=== PATIENT | female | born 2000 | race Asian ===

== ENCOUNTER 2021-12-12 15:17 | Observation (INO) | payer OTHER, SELFPAY ==
[2021-12-12] VITALS (10 sets, daily range): BP systolic 93–115; BP diastolic 51–74; PULSE 71–99; RESP 14–21; TEMP 36.4–36.6; O2SAT 94–100; BMI 21.6; BMI 23.6
--- NOTE | 2021-12-12 16:40 | ED_ITS ---
HPI - Chest Pain General Time Seen by Provider: 16:41 Date Seen: 12/12/21 Chief Complaint: Chest Pain Stated Complaint: Chest Pain Time Seen by Provider: 12/12/21 16:40 Source: patient, RN notes reviewed and old records reviewed Mode of arrival: ambulatory Limitations: no limitations History of Present Illness HPI narrative: Patient is a very pleasant 21-year-old female currently student at [employer] who comes to the emergency room with chest pain. Patient noted to have a pinching sensation in her chest lasting 1-2 minutes a few times a day since FridayDecember 10. Patient denies any shortness of breath or nausea when this happens. She has had no nausea, vomiting, coughing, fever. Patient also describes episodes of dizziness that have been going on for many many months. She was in [place] over the summer and got dizzy passed out and hit her head. She was seen in the local emergency room at which time her EKG showed a ?abnormality? and there was a possibility of a hole in her heart. She did not follow-up as instructed because she stated that she return to school and she was too busy. Patient denies history of DVT in herself or immediate family members. She denies lower extremity edema, calf tenderness. Upon further discussion patient also notes that she has passed out at least 3 times and 1 of those times she was out for approximately 5 minutes. She states that she knows this because she had just sent a text and when she woke up on the floor it was 5 minutes later. Related Data Home Medications Medication Instructions Recorded Confirmed escitalopram oxalate 10 mg tablet mg 12/12/21 Allergies Allergy/AdvReac Type Severity Reaction Status Date / Time No Known Drug Allergies Allergy Verified 12/12/21 15:42 Review of Systems Status of ROS Reports: 10 or more systems reviewed and unremarkable except as noted in History and below Const Denies: fever, chills or fatigue Eyes Denies: change in vision ENMT Denies: throat pain, neck pain or difficulty swallowing Cardio Reports: chest pain and lightheadedness; Denies: palpitations, edema, swelling of feet/ankles or shortness of breath with exertion Resp Denies: shortness of breath, cough or wheezing GI Denies: abdominal pain, nausea, vomiting, diarrhea or difficulty swallowing Denies: painful urination or urinary frequency Musculo Denies: back pain or neck pain Neuro Denies: headache Endo Denies: fatigue Allergy/Immuno Denies: wheezing PFSH PFSH Social History Smoking Status: Never smoker Do you use any of these nicotine containing products: None Second hand tobacco smoke exposure: No How often do you have a drink containing alcohol: never How often do you have six or more drinks on one occasion: Never AUDIT-C Alcohol total score: 0 Non-prescribed substance use: denies use service: No Exam Narrative Exam Narrative: Patient is alert and oriented. No acute distress. Face symmetrical. Heart with regular rate and rhythm. No murmur or rub. Lungs are clear bilaterally. Abdomen soft. Lower extremities without edema or calf tenderness. Const Vital Signs, click to edit/add: Vital Signs - 24 hr 12/12/21 15:38 12/12/21 19:30 12/12/21 19:00 Temperature 97.9 F Pulse Rate [Pulse Oximeter] 99 77 89 Pulse Rate [orthostatic lying Apical] Pulse Rate [orthostatic sitting Right Apical] Pulse Rate [orthostatic standing Right Apical] Respiratory Rate 14 20 18 Blood Pressure [Right Upper Arm] 115/74 107/63 Blood Pressure [orthostatic lying Right Arm] Blood Pressure [orthostatic sitting Right Arm] Blood Pressure [orthostatic standing Right Arm] Pulse Oximetry 96 94 100 Oxygen Delivery Method Room Air Room Air Room Air 12/12/21 18:38 12/12/21 18:00 12/12/21 17:30 Temperature Pulse Rate [Pulse Oximeter] 77 71 86 Pulse Rate [orthostatic lying Apical] Pulse Rate [orthostatic sitting Right Apical] Pulse Rate [orthostatic standing Right Apical] Respiratory Rate 18 18 Blood Pressure [Right Upper Arm] 104/68 98/62 94/51 L Blood Pressure [orthostatic lying Right Arm] Blood Pressure [orthostatic sitting Right Arm] Blood Pressure [orthostatic standing Right Arm] Pulse Oximetry 98 99 Oxygen Delivery Method Room Air Room Air Room Air 12/12/21 17:11 12/12/21 17:46 Temperature Pulse Rate [Pulse Oximeter] 78 Pulse Rate [orthostatic lying Apical] 73 Pulse Rate [orthostatic sitting Right Apical] 85 Pulse Rate [orthostatic standing Right Apical] 97 Respiratory Rate 21 Blood Pressure [Right Upper Arm] 93/55 L Blood Pressure [orthostatic lying Right Arm] 93/58 L Blood Pressure [orthostatic sitting Right Arm] 94/61 Blood Pressure [orthostatic standing Right Arm] 96/66 Pulse Oximetry 97 Oxygen Delivery Method Room Air Course Course Hospital Course: Will obtain EKG, troponin, CBC comprehensive panel urinalysis CRP and chest x- ray. Vital Signs Vital signs: Initial Vital Signs Temperature 97.9 F 12/12/21 15:38 Temperature Source Temporal Artery Scan 12/12/21 15:38 Pulse Rate 99 12/12/21 15:38 Pulse Rhythm 12/12/21 15:38 Respiratory Rate 14 12/12/21 15:38 Blood Pressure 115/74 12/12/21 15:38 Blood Pressure Mean 87 12/12/21 15:38 Blood Pressure Position Sitting 12/12/21 15:38 Pulse Oximetry 96 12/12/21 15:38 Oxygen Delivery Method 12/12/21 15:38 Vital Signs Temperature 97.9 F 12/12/21 15:38 Pulse Rate 99 12/12/21 15:38 Respiratory Rate 14 12/12/21 15:38 Blood Pressure 115/74 12/12/21 15:38 Pulse Oximetry 96 12/12/21 15:38 Oxygen Delivery Method 12/12/21 15:38 Temperature 97.9 F 12/12/21 15:38 Pulse Rate 77 12/12/21 19:30 Respiratory Rate 20 12/12/21 19:30 Blood Pressure 107/63 12/12/21 19:30 Pulse Oximetry 94 12/12/21 19:30 Oxygen Delivery Method 12/12/21 19:30 MDM - Chest Pain MDM Narrative Medical decision making narrative: 1. Chest pain-initial cardiac enzyme negative. EKG shows incomplete right bundle branch block but no acute ST or T-wave changes. Initial troponin negative. Second troponin pending. 2. History of syncopal episodes 3. Disposition admitted under the care of Dr. Yudi Leblanc hospitalist. Plan on a.m. echocardiogram and overnight monitoring. Medical Records Data Attestation: I reviewed the patient's medical records. Lab Data Attestation: I reviewed the patient's lab results. Labs: Lab Results 12/12/21 12/12/21 12/12/21 Range/Units 17:18 17:18 17:18 WBC 6.72 (4.50-11.00) K/uL RBC 3.74 L (4.00-5.20) m/uL Hgb 11.1 L (12.0-16.0) gm/dL Hct 34.6 (33.0-51.0) % MCV 93 (80-100) fL MCH 30 (26-34) pg MCHC 32 (32-36) gm/dL RDW Coeff of Velvet 12.2 (11.5-15.5) % Plt Count 375 (140-440) K/uL Neut % (Auto) 63.1 (42.0-72.0) % Lymph % (Auto) 26.2 (20-44) % [place] % (Auto) 7.6 (0.0-11.0) % Eos % (Auto) 2.1 (0.0-7.0) % Baso % (Auto) 0.9 (0.0-3.0) % Neut # (Auto) 4.24 (1.7-7.0) K/uL Lymph # (Auto) 1.76 (0.90-2.90) K/uL [place] # (Auto) 0.50 (0.00-0.90) K/UL Eos # (Auto) 0.14 (0.00-0.50) K/uL Baso # (Auto) 0.06 (0.00-0.30) K/uL Abs Immat Gran (auto) 0.01 (0.00-0.30) K/uL D-Dimer Quant (PE/DVT) 0.27 (0.00-0.50) ug/ml Sodium 139 (135-149) mmol/L Potassium 4.2 (3.6-5.1) mmol/L Chloride 105 (96-114) mmol/L Carbon Dioxide 25 (20-32) mmol/L BUN 10 (5-24) mg/dL Creatinine 0.6 (0.5-1.5) mg/dL Estimated Creat Clear 134.58 Estimated GFR 132 ml/min Glucose 99 (60-115) mg/dL Calcium 9.0 (8.4-10.6) mg/dL Total Bilirubin 0.2 (0.1-1.5) mg/dL AST 26 (12-35) U/L ALT 22 (4-35) U/L Alkaline Phosphatase 53 (40-150) U/L Troponin I < 0.01 L (0.01-0.04) ng/mL C-Reactive Protein < 0.5 L (0.5-1.0) mg/dL Total Protein 7.7 (6.0-8.3) g/dL Albumin 4.6 (3.3-5.0) g/dL Imaging Data Chest x-ray: Attestation: I have reviewed the pertinent imaging results. My impression: No evidence of infiltrates. Radiologist's impression: There is no focal consolidation, effusion, or pneumothorax. The cardiomediastinal silhouette is within normal limits. The bony thorax is grossly intact. Impression: No acute cardiopulmonary abnormality. ECG Data Attestation: I personally reviewed and interpreted this ECG as follows: ECG interpretation date: 12/12/21 Interpretation: RSR complex noted in the V1 and V2 leads. No acute ST or T-wave changes. Sinus rhythm at a rate of seventy-five. EKG 2. Shows sinus rhythm rate of 75. Discharge Plan Discharge Clinical Impression: History of syncope, Atypical chest pain Patient Disposition: Admitted As Inpatient Condition: Improved
--- NOTE | 2021-12-12 16:49 | CRLHL7_ITS ---
For Patients: As a result of the Century Cures Act, medical imaging exams and procedure reports are released immediately into your electronic medical record. You may view this report before your referring provider. If you have questions, please contact your health care provider. Indication: Chest Pain Comparison: None available. Technique: PA and lateral views of the chest Findings: There is no focal consolidation, effusion, or pneumothorax. The cardiomediastinal silhouette is within normal limits. The bony thorax is grossly intact. Impression: No acute cardiopulmonary abnormality. Dictated by Franky Godinez MD @ 12/12/2021 5:32:47 PM (Electronically Signed)
[2021-12-12 17:26] LABS: Basophils Absolute Auto 0.06 K/uL (0.00-0.30); Basophils Percent Auto 0.9 % (0.0-3.0); Eosinophils Absolute Auto 0.14 K/uL (0.00-0.50); Eosinophils Percent Auto 2.1 % (0.0-7.0); Hematocrit 34.6 % (33.0-51.0); Hemoglobin* 11.1 gm/dL (12.0-16.0); Immature Granulocytes Abs Auto 0.01 K/uL (0.00-0.30); Lymphocytes Absolute Auto 1.76 K/uL (0.90-2.90); Lymphocytes Percent Auto 26.2 % (20-44); Mean Corpuscular HGB Conc 32 gm/dL (32-36); Mean Corpuscular Hemoglobin 30 pg (26-34); Mean Corpuscular Volume 93 fL (80-100); Monocytes Percent Auto 7.6 % (0.0-11.0); Neutrophils Absolute Auto 4.24 K/uL (1.7-7.0); Neutrophils Percent Auto 63.1 % (42.0-72.0); Platelet Count* 375 K/uL (140-440); RDW Coefficient of Variation % 12.2 % (11.5-15.5); Red Blood Count 3.74 m/uL (4.00-5.20); White Blood Count* 6.72 K/uL (4.50-11.00)
[2021-12-12 17:27] LABS: Slide Review Reflex No
[2021-12-12 17:39] LABS: Albumin* 4.6 g/dL (3.3-5.0); Chloride* 105 mmol/L (96-114); Sodium* 139 mmol/L (135-149)
[2021-12-12 17:40] LABS: Potassium* 4.2 mmol/L (3.6-5.1)
[2021-12-12 17:42] LABS: Alanine Aminotransferase* 22 U/L (4-35); Alkaline Phosphatase* 53 U/L (40-150); Aspartate Amino Transferase* 26 U/L (12-35); Bilirubin Total* 0.2 mg/dL (0.1-1.5); Blood Urea Nitrogen* 10 mg/dL (5-24); Carbon Dioxide* 25 mmol/L (20-32); Creatinine* 0.6 mg/dL (0.5-1.5); Est. Creatinine Clearance* 134.58; Estimated Glomerular Filt Rate 132 ml/min; Total Protein* 7.7 g/dL (6.0-8.3)
[2021-12-12 17:43] LABS: Glucose* 99 mg/dL (60-115)
[2021-12-12 17:44] LABS: D Dimer Quantitative* 0.27 ug/ml (0.00-0.50)
[2021-12-12 17:49] LABS: C Reactive Protein* < 0.5 mg/dL (0.5-1.0)
[2021-12-12 17:56] LABS: Troponin I* < 0.01 ng/mL (0.01-0.04)
--- NOTE | 2021-12-12 19:42 | ED.NURSE ---
anw cardiology called for consult. has denied pain since arrival.
--- NOTE | 2021-12-12 20:15 | ED.NURSE ---
Pt asked for HOB to be lowered, feels a 'pinch' in her chest, appears in no distress, vss, Dr. Galindo and care nurse updated.
--- NOTE | 2021-12-12 21:33 | W.PC.EDHO ---
Primary Language: Preferred Language: Orientation Status: [x] Alert & Oriented [] Slight Confusion [] Known Dx Dementia Transfers By: [x] Assist of 1 [] Assist of 2 [] Lift Description of Symptoms ED Triage Present Problem Pinching chest pain intermittently since Friday. Description Was in [place] in January and fainted, was evaluated and they noted abnormal EKG, possible hole in heart? Patient hasn't had any workup for this. No SOB, light-headed. In general, feel dizzy often. ED Triage Date of Onset of 12/10/21 Symptoms Female History Patient No: control Pain Pain Scale Used Numeric (1 - 10) Oxygen Administration Pulse Oximetry 94 Pulse Oximetry 100 Pulse Oximetry 98 Pulse Oximetry 99 Pulse Oximetry 97 Pulse Oximetry 96 Oxygen Delivery Method Room Air Oxygen Delivery Method Room Air Oxygen Delivery Method Room Air Oxygen Delivery Method Room Air Oxygen Delivery Method Room Air Oxygen Delivery Method Room Air Oxygen Delivery Method Room Air Cardiac Monitoring EKG Method 12 Lead EKG Method 12 Lead EKG Method 12 Lead
--- NOTE | 2021-12-12 21:59 | PM.IMHP1 ---
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 Does not seem to be better or worse with activity. She is under lot of stress but nothing new. She has a boyfriend here. Her family is in [facility]. She relates a history of syncope twice in the last year. She describes 1 episode was in the shower and she felt lightheaded and that her lips were cold and she tried sitting down and did not feel much better and then she thinks she passed out for a few seconds could she woke up on the floor. This was not witnessed. The other episode happened while traveling in [place] last summer. Those details are as clear. She reports to be sexually active, using condoms. She denies any drug use. She denies vaping. No family history of hypertrophic cardiomyopathy. No history of cardiac sudden I've updated the PFSH, medications and allergies in the [facility] tabs. INVESTIGATIONS: LABS/MICRO/ECG/IMAGING CBC was unremarkable, she is mildly anemic at 11.1. Negative D-dimer Negative chemistries Negative chest x-ray EKG shows a right bundle branch block. No baseline to compare to. Sinus rhythm. REVIEW OF SYSTEMS: 12-point ROS completed with patient and negative unless otherwise stated in HPI or below. PHYSICAL EXAM: CODE STATUS: Full code CONSTITUTIONAL: Conversive, good historian. A/O. Knows setting and context. VITAL SIGNS: see record. HEENT: Normocephalic, atraumatic. PERRL, EOMI, conjunctivae pink, no scleral icterus. Ears and nose externally normal. Pharynx normal. NECK: No JVD. No carotid bruit, no thyromegaly, no adenopathy. CHEST: Clear to auscultation bilaterally HEART: S1 and S2 normal. No harsh murmurs. Edema MUSCULOSKELETAL: No gross joint deformity or swelling. NEURO: Cranial nerves intact. Grossly intact. No asymmetric findings. SKIN: No rashes, petechiae, concerning changes PSYCHIATRIC: Euthymic. Flat. [facility] DVT: Lovenox GI: PO intake Time spent: 70 minutes examining patient, conferring with family and patient, care staff, developing care plan [facility] Medical History (Updated 12/12/21 @ 22:02 by Yudi Leblanc MD) Anxiety Right bundle branch block Social History Smoking Status: Never smoker Do you use any of these nicotine containing products: None Second hand tobacco smoke exposure: No How often do you have a drink containing alcohol: never How often do you have six or more drinks on one occasion: Never AUDIT-C Alcohol total score: 0 Non-prescribed substance use: denies use service: No Meds Home Medications and Allergies Home Medications Medication Instructions Recorded Confirmed Type escitalopram oxalate 10 mg tablet 10 mg PO DAILY 12/12/21 12/12/21 History Allergies Allergy/AdvReac Type Severity Reaction Status Date / Time No Known Drug Allergies Allergy Verified 12/12/21 15:42 Exam Const: Vital Signs, click to edit/add: Vital Signs - 24 hr 12/12/21 15:38 12/12/21 19:30 12/12/21 19:00 Temperature 97.9 F Pulse Rate [Pulse Oximeter] 99 77 89 Pulse Rate [orthos tatic lying Apical ] Pulse Rate [orthos tatic sitting Righ t Apical] Pulse Rate [orthos tatic standing Rig ht Apical] Respiratory Rate 14 20 18 Blood Pressure [Ri ght Upper Arm] 115/74 107/63 Blood Pressure [or thostatic lying Ri ght Arm] Blood Pressure [or thostatic sitting Right Arm] Blood Pressure [or thostatic standing Right Arm] Pulse Oximetry 96 94 100 Oxygen Delivery Me thod Room Air Room Air Room Air 12/12/21 18:38 12/12/21 18:00 12/12/21 17:30 Temperature Pulse Rate [Pulse Oximeter] 77 71 86 Pulse Rate [orthos tatic lying Apical ] Pulse Rate [orthos tatic sitting Righ t Apical] Pulse Rate [orthos tatic standing Rig ht Apical] Respiratory Rate 18 18 Blood Pressure [Ri ght Upper Arm] 104/68 98/62 94/51 L Blood Pressure [or thostatic lying Ri ght Arm] Blood Pressure [or thostatic sitting Right Arm] Blood Pressure [or thostatic standing Right Arm] Pulse Oximetry 98 99 Oxygen Delivery Me thod Room Air Room Air Room Air 12/12/21 17:11 12/12/21 17:46 Temperature Pulse Rate [Pulse Oximeter] 78 Pulse Rate [orthos tatic lying Apical ] 73 Pulse Rate [orthos tatic sitting Righ t Apical] 85 Pulse Rate [orthos tatic standing Rig ht Apical] 97 Respiratory Rate 21 Blood Pressure [Ri ght Upper Arm] 93/55 L Blood Pressure [or thostatic lying Ri ght Arm] 93/58 L Blood Pressure [or thostatic sitting Right Arm] 94/61 Blood Pressure [or thostatic standing Right Arm] 96/66 Pulse Oximetry 97 Oxygen Delivery Me thod Room Air Hospitalist - H&P: Result Labs Labs: Short CBC 12/12/21 Range/Units 17:18 WBC 6.72 (4.50-11.00) K/uL Hgb 11.1 L (12.0-16.0) gm/dL Hct 34.6 (33.0-51.0) % Plt Count 375 (140-440) K/uL BMP 12/12/21 17:18 Sodium 139 Potassium 4.2 Chloride 105 Carbon Dioxide 25 BUN 10 Creatinine 0.6 Glucose 99 Calcium 9.0 Cardiac Enzymes 12/12/21 Range/Units 17:18 Troponin I < 0.01 L (0.01-0.04) ng/mL Liver Function 12/12/21 Range/Units 17:18 Total Bilirubin 0.2 (0.1-1.5) mg/dL AST 26 (12-35) U/L ALT 22 (4-35) U/L Alkaline Phosphatase 53 (40-150) U/L Albumin 4.6 (3.3-5.0) g/dL Assessment and Plan Assessment and plan (1) Atypical chest pain: Problem comment: Likely related to anxiety. However, given her right bundle branch block, syncope, chest pain ... It is reasonable to keep her on telemetry overnight and check an echo in the morning. She can also do outpatient follow-up with cardiology once she has her echo. Status: Acute (2) Anxiety: Problem comment: On Lexapro 10 mg, continue this Status: Acute (3) Right bundle branch block: Problem comment: Likely normal variant based on her axis Status: Acute (4) History of syncope: Status: Acute
[2021-12-12 22:04] LABS: SARS PCR* Negative SARS-CoV-2 (Negative)
[2021-12-12 22:58] LABS: Appearance Urine Clear (Clear); Bilirubin Urine Negative (Negative); Blood Urine Trace-intact (Negative); Color Urine Yellow (Yellow); Glucose Urine Negative (Negative); Ketones Urine Negative (Negative); Leukocyte Esterase Urine 1+ (Negative); Nitrite Urine Negative (Negative); Protein Urine Negative (Negative); Urobilinogen Urine 0.2 (0.2-1.0)
[2021-12-12 23:14] LABS: RBC Urine 0-2 (0-2)
[2021-12-12 23:15] LABS: Bacteria Urine Few; Squamous Epithelial Cell Urine Few (None-Few)
[2021-12-13 03:17] VITALS: PULSE 94
[2021-12-13 06:00] VITALS: BP 99/60; PULSE 62; RESP 16; TEMP 36.5; O2SAT 98
--- NOTE | 2021-12-13 06:52 | PC.NURSE ---
Shift note: The pt has been pleasant and cooperative. She denied chest pain and other distress throughout the shift. Tele has been showing NSR to Sinus adin ( HR in 50s when the pt was sleeping). No IV; okay without IV per Dr Leblanc. The pt appeared without any distress.
[2021-12-13 06:53] LABS: HCG Qualitative Serum* Negative (Negative)
[2021-12-13 07:52] LABS: Troponin I* < 0.01 ng/mL (0.01-0.04)
[2021-12-13] MEDS: ESCITALOPRAM 10 MG TABLET PO (09:03)
[2021-12-13 10:00] VITALS: BP 99/58; PULSE 74; RESP 16; TEMP 36.5; O2SAT 98
[2021-12-13 11:00] VITALS: PULSE 59
--- NOTE | 2021-12-13 11:28 | PM.DS1 ---
DS: Providers Provider Date Seen: 12/13/21 Date of admission: 12/12/21 20:53 Primary care physician: Not a Local Provider Admitting Clinician: Yudi Leblanc MD Attending Physician on discharge: Yudi Leblanc MD Date of Discharge: 12/13/21 DS: Diagnosis Discharge Diagnosis (1) Atypical chest pain: Status: Acute Problem details: Likely related to anxiety. However, given her right bundle branch block, syncope, chest pain ... It is reasonable to keep her on telemetry overnight and check an echo in the morning. She can also do outpatient follow-up with cardiology once she has her echo. (2) History of syncope: Status: Acute (3) Right bundle branch block: Status: Acute Problem details: Likely normal variant based on her axis DS: Summary Hospital Course Hospital Course: 21-year-old female admitted to the hospital after an episode of chest pain. Patient reported pinching sensation that occurred in the area of her upper sternum that lasted a minute. She has had this episode happened to her before. Not associated with activity exertion or eating. He came on and resolved without any intervention on her part. Also no at time admission is a previous history of syncope. She is admitted to the hospital for cardiac monitoring, serial troponins, symptom monitoring and echocardiogram. Her symptoms have entirely resolved. Evaluation is entirely normal and her echocardiogram is pending. Status at Discharge Functional status at discharge: independent ambulation Overall status at discharge: patient is back to baseline Time Spent with Patient Time attestation: Total time spent providing and/or coordinating discharge services: Time spent: Greater than 30 minutes Exam Narrative: Exam Narrative: She is alert and appears in no distress. Speech is normal. Eyes normal. Oropharynx normal. Neck is supple without mass or adenopathy. Respirations are clear to auscultation. Breathing is unlabored. Cardiovascular: S1, S2, regular rate and rhythm. No murmur gallop or rub. Abdomen: Bowel sounds active. Abdomen is soft without tenderness or mass. Extremities without edema. She has intact peripheral pulses. Const: Vital Signs, click to edit/add: Vital Signs - 24 hr 12/12/21 15:38 12/12/21 19:30 12/12/21 19:00 Temperature 97.9 F Pulse Rate Pulse Rate [Pulse Oximeter] 99 77 89 Pulse Rate [orthos tatic lying Apical ] Pulse Rate [orthos tatic sitting Righ t Apical] Pulse Rate [orthos tatic standing Rig ht Apical] Respiratory Rate 14 20 18 Blood Pressure [Ri ght Radial Artery] Blood Pressure [Ri ght Upper Arm] 115/74 107/63 Blood Pressure [or thostatic lying Ri ght Arm] Blood Pressure [or thostatic sitting Right Arm] Blood Pressure [or thostatic standing Right Arm] Pulse Oximetry 96 94 100 Oxygen Delivery Me thod Room Air Room Air Room Air 12/12/21 18:38 12/12/21 18:00 12/12/21 17:30 Temperature Pulse Rate Pulse Rate [Pulse Oximeter] 77 71 86 Pulse Rate [orthos tatic lying Apical ] Pulse Rate [orthos tatic sitting Righ t Apical] Pulse Rate [orthos tatic standing Rig ht Apical] Respiratory Rate 18 18 Blood Pressure [Ri ght Radial Artery] Blood Pressure [Ri ght Upper Arm] 104/68 98/62 94/51 L Blood Pressure [or thostatic lying Ri ght Arm] Blood Pressure [or thostatic sitting Right Arm] Blood Pressure [or thostatic standing Right Arm] Pulse Oximetry 98 99 Oxygen Delivery Me thod Room Air Room Air Room Air 12/12/21 17:11 12/12/21 17:46 12/12/21 22:51 Temperature 98 F Pulse Rate Pulse Rate [Pulse Oximeter] 78 88 Pulse Rate [orthos tatic lying Apical ] 73 Pulse Rate [orthos tatic sitting Righ t Apical] 85 Pulse Rate [orthos tatic standing Rig ht Apical] 97 Respiratory Rate 21 20 Blood Pressure [Ri ght Radial Artery] 109/61 Blood Pressure [Ri ght Upper Arm] 93/55 L Blood Pressure [or thostatic lying Ri ght Arm] 93/58 L Blood Pressure [or thostatic sitting Right Arm] 94/61 Blood Pressure [or thostatic standing Right Arm] 96/66 Pulse Oximetry 97 97 Oxygen Delivery Me thod Room Air Room Air 12/12/21 22:51 12/12/21 23:30 12/12/21 23:30 Temperature 98 F 97.6 F Pulse Rate Pulse Rate [Pulse Oximeter] 88 88 88 Pulse Rate [orthos tatic lying Apical ] Pulse Rate [orthos tatic sitting Righ t Apical] Pulse Rate [orthos tatic standing Rig ht Apical] Respiratory Rate 20 20 20 Blood Pressure [Ri ght Radial Artery] 109/61 94/64 Blood Pressure [Ri ght Upper Arm] Blood Pressure [or thostatic lying Ri ght Arm] Blood Pressure [or thostatic sitting Right Arm] Blood Pressure [or thostatic standing Right Arm] Pulse Oximetry 97 97 Oxygen Delivery Me thod Room Air Room Air 12/13/21 03:17 12/13/21 06:00 Temperature 97.7 F Pulse Rate 94 Pulse Rate [Pulse Oximeter] 62 Pulse Rate [orthos tatic lying Apical ] Pulse Rate [orthos tatic sitting Righ t Apical] Pulse Rate [orthos tatic standing Rig ht Apical] Respiratory Rate 16 Blood Pressure [Ri ght Radial Artery] 99/60 Blood Pressure [Ri ght Upper Arm] Blood Pressure [or thostatic lying Ri ght Arm] Blood Pressure [or thostatic sitting Right Arm] Blood Pressure [or thostatic standing Right Arm] Pulse Oximetry 98 Oxygen Delivery Me thod Room Air DS: Data Data Completed and Pending Labs on day of discharge: Labs from last 24 hours 12/13/21 12/13/21 12/12/21 05:40 05:40 22:16 WBC RBC Hgb Hct MCV MCH MCHC RDW Coeff of Velvet Plt Count Neut % (Auto) Lymph % (Auto) Rank[place] % (Auto) Eos % (Auto) Baso % (Auto) Neut # (Auto) Lymph # (Auto) Rankin # (Auto) Eos # (Auto) Baso # (Auto) Abs Immat Gran (auto) D-Dimer Quant (PE/DVT) Sodium Potassium Chloride Carbon Dioxide BUN Creatinine Estimated Creat Clear Estimated GFR Glucose Calcium Total Bilirubin AST ALT Alkaline Phosphatase Troponin I < 0.01 L C-Reactive Protein Total Protein Albumin HCG, Qual Negative Urine Color Yellow Urine Appearance Clear Urine pH 8.0 Ur Specific [place] 1.020 Urine Protein Negative Urine Glucose (UA) Negative Urine Ketones Negative Urine Blood Trace-intact A Urine Nitrite Negative Urine Bilirubin Negative Urine Urobilinogen 0.2 Ur Leukocyte Esterase 1+ A Urine RBC 0-2 Urine WBC 2-5 Ur Squamous Epith Cells Few Urine Bacteria Few A SARS-CoV-2 (PCR) POC Troponin I 12/12/21 12/12/21 12/12/21 21:10 20:45 17:18 WBC RBC Hgb Hct MCV MCH MCHC RDW Coeff of Velvet Plt Count Neut % (Auto) Lymph % (Auto) Rankin % (Auto) Eos % (Auto) Baso % (Auto) Neut # (Auto) Lymph # (Auto) Rankin # (Auto) Eos # (Auto) Baso # (Auto) Abs Immat Gran (auto) D-Dimer Quant (PE/DVT) Sodium 139 Potassium 4.2 Chloride 105 Carbon Dioxide 25 BUN 10 Creatinine 0.6 Estimated Creat Clear 134.58 Estimated GFR 132 Glucose 99 Calcium 9.0 Total Bilirubin 0.2 AST 26 ALT 22 Alkaline Phosphatase 53 Troponin I < 0.01 L C-Reactive Protein < 0.5 L Total Protein 7.7 Albumin 4.6 HCG, Qual Urine Color Urine Appearance Urine pH Ur Specific [place] Urine Protein Urine Glucose (UA) Urine Ketones Urine Blood Urine Nitrite Urine Bilirubin Urine Urobilinogen Ur Leukocyte Esterase Urine RBC Urine WBC Ur Squamous Epith Cells Urine Bacteria SARS-CoV-2 (PCR) Negative SARS-CoV-2 POC Troponin I 0.00 L 12/12/21 12/12/21 17:18 17:18 WBC 6.72 RBC 3.74 L Hgb 11.1 L Hct 34.6 MCV 93 MCH 30 MCHC 32 RDW Coeff of Velvet 12.2 Plt Count 375 Neut % (Auto) 63.1 Lymph % (Auto) 26.2 Rankin % (Auto) 7.6 Eos % (Auto) 2.1 Baso % (Auto) 0.9 Neut # (Auto) 4.24 Lymph # (Auto) 1.76 Rankin # (Auto) 0.50 Eos # (Auto) 0.14 Baso # (Auto) 0.06 Abs Immat Gran (auto) 0.01 D-Dimer Quant (PE/DVT) 0.27 Sodium Potassium Chloride Carbon Dioxide BUN Creatinine Estimated Creat Clear Estimated GFR Glucose Calcium Total Bilirubin AST ALT Alkaline Phosphatase Troponin I C-Reactive Protein Total Protein Albumin HCG, Qual Urine Color Urine Appearance Urine pH Ur Specific [place] Urine Protein Urine Glucose (UA) Urine Ketones Urine Blood Urine Nitrite Urine Bilirubin Urine Urobilinogen Ur Leukocyte Esterase Urine RBC Urine WBC Ur Squamous Epith Cells Urine Bacteria SARS-CoV-2 (PCR) POC Troponin I Discharge Plan Discharge Disposition: Home, Self-Care Date of Admission: 12/12/21 20:53 Primary Care Provider: Provider,Not a Local Condition: Improved Anticipated Discharge Date/Time: 12/13/21 16:00 Discharge Medications: Continued escitalopram oxalate 10 mg tablet 10 mg PO DAILY Discharge Orders: Discharge Order (Routine); Ordered 12/13/21 Ordered By: Ulysses Tang Follow Up Appointments: Provider,Not a Local [Primary Care Provider] - Forms: [employer] Info Instructions
[2021-12-13 12:00] VITALS: BP 101/56; PULSE 68; RESP 16; O2SAT 100
--- NOTE | 2021-12-13 15:01 | PC.NURSE ---
PATIENT DISCHARGED TO HOME, UP IND WITH STEADY GAIT, EATING REGULAR DIET NO NAUSEA, DECLINING CHEST PAIN, DID EXPRESS SOME LEFT NECK DISCOMFORT THAT WENT AWAY AFTER MOVING AROUND, ECHOCARDIOGRAM TODAY, TELE SHOWING SINUS ANTHONY/NSR, ALERT AND ORIENTED, PLEASANT AND COOPERATIVE, PATIENT DISCHARGED TO HOME AT 1500, PATIENT VERBALIZED UNDERSTANDING OF DISCHARGE INFORMATION AND HAD NO FURTHER QUESTIONS AT THIS TIME, DECLINED NEED FOR WHEELCHAIR AND AMBULATED TO ED DOORS.
== END 2021-12-13 15:00 | disposition home or self-care (01) ==
LOC: ED 20:53 → MEDSURG 20:54
PROVIDERS: Admitting Provider Family Medicine; Emergency Provider Family Medicine; Visit Provider Family Medicine
DX: R07.89 Other chest pain (principal); F41.9 Anxiety disorder, unspecified; I45.10 Unspecified right bundle-branch block; Z87.898 Personal history of other specified conditions
CPT/HCPCS: 36415; 71046; 80053; 81001; 81025; 84484; 84703; 85025; 85379; 86140; 87086; 87635; 93005; 93306; 99285; G0378; A9270